=== PATIENT | female | born 1945 | race Caucasian/White ===

== ENCOUNTER 2021-07-02 08:27 | Emergency (ER) | payer MEDICARE, OTHER, SELFPAY ==
[2021-07-02] VITALS (14 sets, daily range): BP systolic 128–199; BP diastolic 78–104; PULSE 80–112; RESP 17–36; TEMP 36.7; O2SAT 93–99; BMI 28.9
--- NOTE | 2021-07-02 08:51 | DI.RAD.S_ITS ---
PROCEDURE: XR CHEST 1V INDICATIONS: chest pain TECHNIQUE: One view of the chest was acquired. COMPARISON: None. FINDINGS: Surgical changes and devices: None. Lungs and pleura: On this semiupright portable chest examination, no large pneumothorax or large pleural effusions are seen. No focal infiltrates are seen. Mediastinum: The cardiac contours are within normal limits. The aorta demonstrates calcification and tortuosity. Bones and chest wall: Age-appropriate bony degenerative changes are seen. No suspicious bony lesions. Overlying soft tissues appear unremarkable. IMPRESSION: Unremarkable portable chest study age. Dictated by: Diego Carty M.D. on 07/02/2021 at 8:13 Approved by: Diego Carty M.D. on 07/02/2021 at 8:13
--- NOTE | 2021-07-02 09:00 | ED.CHESTPAIN ---
HPI - Chest Pain General Chief Complaint: Chest Pain Stated Complaint: AFIB Time Seen by Provider: 07/02/21 09:00 Source: patient Limitations: no limitations Limitations: no limitations History of Present Illness HPI narrative: This is a 75-year-old female comes emergency department stating she is in atrial fibrillation. She has had a history of AFib she is anticoagulated propylene on Pradaxa which he takes twice daily. She denies missing any doses. She states last night she noticed her heart irregular, it felt fast at that time but now just feels irregular chills occasional fluttering. She denies chest pain or pressure or shortness of breath. She has been mildly lightheaded but has not had any syncope. No nausea, no vomiting. No swelling her extremities. She is scheduled for an ablation in September of 2021. Patient states that she is on Pradaxa, lisinopril, sotalol and levothyroxine. She has had all of her medications today except for her levothyroxine. She has had 1 cardioversion where she received medication and an electrical shock at would be ER. She had 1 additional episode really give her medication which cardioverted her. And she has had 2 episodes where she was able to switch back to a normal rhythm at home. She has not had any prior cardiac interventions no stents or ablation. She has had tonsillectomy and hysterectomy. No tobacco, occasional alcohol none recently, no illicit. Her primary care doctors Dr. Cortez and her home health physical therapist is Dr. Santana. Related Data Home Medications Medication Instructions Recorded Confirmed levothyroxine 50 mcg capsule 50 mcg PO DAILY 05/30/19 05/30/19 lisinopril 10 mg tablet 10 mg PO DAILY 05/30/19 05/30/19 metoprolol tartrate 25 mg tablet 25 mg PO BID 05/30/19 05/30/19 rivaroxaban 20 mg tablet (Xarelto) 20 mg PO DAILY 05/30/19 05/30/19 simvastatin 20 mg tablet (Zocor) 20 mg PO QPM 05/30/19 05/30/19 Allergies Allergy/AdvReac Type Severity Reaction Status Date / Time amoxicillin [AMOXICILLIN] Allergy Intermediate Hives Verified 07/02/21 08:57 codeine AdvReac Hallucinati Verified 07/02/21 08:58 ng rivaroxaban [From Xarelto] AdvReac Verified 07/02/21 08:58 Review of Systems Review of Systems ROS Unobtainable: All systems reviewed & are unremarkable except as noted in HPI and below Patient History Surgical History History of tonsillectomy Status post dilation and curettage Status post hysterectomy Family History Grandmother Heart disease Father Hypertension Family/Other Restless leg syndrome Hypertension Social History Smoking Status: Never smoker Smoking Status: Never smoker Exam Narrative Exam Narrative: GENERAL: Alert and oriented x three, female mild distress. HEENT: Head normocephalic, atraumatic, EOMI, pupils reactive, face symmetric, moist mucous membranes NECK: Supple, full range of motion CARDIOVASCULAR: Irregularly irregular rate and rhythm without murmurs, rubs or gallops. No JVD. No swelling bilateral lower extremities. RESPIRATORY: Breath sounds equal bilaterally, no wheezes rales or rhonchi. No tachypnea accessory muscle use. ABDOMEN: Soft, nontender. Normoactive bowel sounds all 4 quadrants. No guarding or rebound, rigidity, no mass : No CVA tenderness EXTREMITIES: Normal range of motion, no clubbing or edema. Neurovascularly intact NEUROLOGICAL: Cranial nerves II through XII grossly intact. Moving all extremities SKIN: Warm, dry, no petechiae, no rashes or lesions. Initial Vital Signs Initial Vital Signs: Vital Signs Temperature 98.0 F 07/02/21 08:35 Pulse Rate 112 H 07/02/21 08:35 Respiratory Rate 20 07/02/21 08:35 Blood Pressure 199/95 H 07/02/21 08:35 Pulse Oximetry 98 07/02/21 08:35 Course Orders Ordered: Discontinued Medications Sodium Chloride (Normal Saline 0.9%) 1,000 mls @ 1,000 mls/hr IV BOLUS ONE Stop: 07/02/21 10:13 Last Infusion: 07/02/21 11:24 Dose: 0 mls/hr Documented by: [email or web address] Admin: 07/02/21 09:19 Dose: 1,000 mls/hr Documented by: [email or web address] Reevaluation(s) Reevaluation #1: Discussed with patient recommendation from Cardiology she feels comfortable with this plan. She will contact her cardiology team she has a follow already scheduled in the next couple weeks but will call see about sooner follow-up for potential cardioversion outpatient. She is aware of signs symptoms to watch for and reasons to return emergently. Consultations Consultation #1: Dr Vaughn, cardiology with [facility]. Discussed patient has been rate controlled here in the department. She describes what was a eventful cardioversion and her last emergency room visit and discuss that at this time likely would not be appropriate she is right control, she is appropriately anticoagulated they agree with this due states she did have an outpatient cardioversion with them if necessary but at this time would have her return home continue her home medications and follow-up. Vital Signs Vital signs: Vital Signs - 8 hr 07/02/21 08:35 07/02/21 08:45 07/02/21 09:00 Temperature 98.0 F Pulse Rate 112 H 86 82 Respiratory Rate 20 35 H 32 H Blood Pressure 199/95 H Pulse Oximetry 98 99 97 07/02/21 09:01 Temperature Pulse Rate 88 Respiratory Rate 36 H Blood Pressure 141/85 H Pulse Oximetry 96 MDM - Chest Pain Lab Data Result diagrams: 07/02/21 08:45 07/02/21 08:45 Labs: Lab Results 07/02/21 07/02/21 07/02/21 Range/Units 08:45 08:45 09:20 WBC 5.9 (4.5-11.0) X10^3/uL RBC 5.29 H (4.0-5.2) X10^6/uL Hgb 16.2 H (12.0-16.0) g/dL Hct 47.5 H (36-46) % MCV 89.8 (80-100) fL MCH 30.7 (26-34) PG MCHC 34.1 (30-36) % RDW 13.0 (11.6-14.8) % Plt Count 233 (150-400) X10^3/uL Neut % (Auto) 43.3 L (50-75) % Lymph % (Auto) 46.1 H (25-40) % [place] % (Auto) 8.5 (3-14) % Eos % (Auto) 1.6 L (2-4) % Baso % (Auto) 0.5 (0-2) % Neut # (Auto) 2500 (1389-0379) /uL Lymph # (Auto) 2700 (5225-6892) /uL [place] # (Auto) 500 (0-900) /uL Eos # (Auto) 100 (0-450) /uL Baso # (Auto) 0 (0-100) /uL Sodium 138 (137-145) mmol/L Potassium 4.3 (3.4-5.1) mmol/L Chloride 101 (98-107) mmol/L Carbon Dioxide 28 (22-32) mmol/L BUN 13 (7-17) mg/dL Creatinine 0.64 (0.52-1.04) mg/dL Estimated GFR > 60.0 (>60) mL/min BUN/Creatinine Ratio 20.3 (6-22) Glucose 136 H (80-110) mg/dL Calcium 9.4 (8.4-10.2) mg/dL Magnesium 2.2 (1.6-2.3) mg/dL Total Bilirubin 1.1 (0.2-1.3) mg/dL AST 37 H (14-36) IU/L ALT 28 (<35) IU/L Alkaline Phosphatase 75 (38-126) U/L Total Creatine Kinase 84 (30-135) U/L CK-MB (CK-2) TNP CK-MB (CK-2) Rel Index TNP Troponin I < 0.012 (0.01-0.034) ng/mL Total Protein 8.1 (6.3-8.2) g/dL Albumin 4.7 (3.5-5.0) g/dL Globulin 3.4 (1.7-4.1) g/dL Albumin/Globulin Ratio 1.4 (1.0-2.8) Lipase 69 (23-300) U/L SARS-CoV-2 (PCR) Negative (Negative) Imaging Data Chest x-ray: Radiologist's Impression: Launch?[address] [address] XRay Report Signed Patient: Radha Donovan MR#: [id number] : 1945 Acct:[id number] Age/Sex: 75 / F Date of Service: 07/02/21 Loc: ED Accession Number: [id number] ?? Procedure: XR chest 1V Ordering Provider: Natasha Rodrigez D.O. PROCEDURE:? XR CHEST 1V ? INDICATIONS:? chest pain ? TECHNIQUE:? One view of the chest was acquired.? ? COMPARISON:? None. ? FINDINGS:? ? Surgical changes and devices:? None.? ? Lungs and pleura:? On this semiupright portable chest examination, no large pneumothorax or large pleural effusions are seen.? No focal infiltrates are seen.? ? Mediastinum:? The cardiac contours are within normal limits. The aorta demonstrates calcification and tortuosity. ? Bones and chest wall:? Age-appropriate bony degenerative changes are seen.? No suspicious bony lesions.? Overlying soft tissues appear unremarkable.? IMPRESSION:? Unremarkable portable chest study age.? ? ? Dictated by: Diego Carty M.D. on 07/02/2021 at 8:13 ? ? Approved by: Diego Carty M.D. on 07/02/2021 at 8:13?? ECG Data Attestation: I personally reviewed and interpreted this ECG as follows: Prior ECG tracings: not available for review Interpretation: AFib with rate of 76 QRS 82 and QTC of 425. No acute ST elevation depression noted. No priors available for comparison. MDM Narrative Medical decision making narrative: This is a 75-year-old female with known history of AFib who is appropriately anticoagulated. She is rate controlled with no emergent symptoms. Her labs are appropriate, EKG and chest x-ray. Discussed with patient she has had a cardioversion emergency department before and describes her heart stops, she states she was told to let other people know when she had this before she does not know what medication she received. After discussion of risks versus benefits discussed with her cardiology team as well and feels she is quite stable at this time would defer have her follow-up outpatient with Cardiology. They can schedule cardioversion and have her return if she is having acutely worsening symptoms. Discharge Plan Departure Patient Disposition: Home Clinical Impression: Atrial fibrillation Instructions: Atrial Fibrillation Activity Restrictions/Additional Instructions: Please follow-up with her cardiology team. I spoke with them today they may be able to do an outpatient cardioversion for you if your symptoms are persistent but agree with waiting on cardioversion today. Please continue home medications as prescribed. Please return for recurrent or worsening symptoms, fast heartbeat that is persistent or very very slow, passing out, new chest pain or shortness of breath, persistent vomiting, swelling of extremities or other new or concerning symptoms. Prescriptions: No Action Xarelto 20 mg tablet 20 mg PO DAILY 0RF metoprolol tartrate 25 mg tablet 25 mg PO BID 0RF simvastatin [Zocor] 20 mg tablet 20 mg PO QPM 0RF levothyroxine 50 mcg capsule 50 mcg PO DAILY 0RF lisinopril 10 mg tablet 10 mg PO DAILY 0RF Referrals: Maria Luisa Cortez MD [Primary Care Provider] - Taqueria Santana MD [Non-Staff] -
[2021-07-02 09:13] LABS: Add Manual Diff / Slide Review NO; Basophils Absolute Auto 0 /uL (0-100); Basophils Percent Auto 0.5 % (0-2); Eosinophils Absolute Auto 100 /uL (0-450); Eosinophils Percent Auto 1.6 % (2-4); Hematocrit 47.5 % (36-46); Hemoglobin 16.2 g/dL (12.0-16.0); Lymphocytes Absolute Auto 2700 /uL (1100-4500); Lymphocytes Percent Auto 46.1 % (25-40); Mean Corpuscular HGB Conc 34.1 % (30-36); Mean Corpuscular Hemoglobin 30.7 PG (26-34); Mean Corpuscular Volume 89.8 fL (80-100); Monocytes Absolute Auto 500 /uL (0-900); Monocytes Percent Auto 8.5 % (3-14); Neutrophils Absolute Auto 2500 /uL (1500-7000); Neutrophils Percent Auto 43.3 % (50-75); Platelet Count 233 X10^3/uL (150-400); Red Blood Cell Count 5.29 X10^6/uL (4.0-5.2); White Blood Cell Count 5.9 X10^3/uL (4.5-11.0)
[2021-07-02] MEDS: SODIUM CHLORIDE 0.9% 1,000 ML 1000 ML IV (09:19)
[2021-07-02 09:20] LABS: Alanine Aminotransferase 28 IU/L (<35); Albumin 4.7 g/dL (3.5-5.0); Albumin Globulin Ratio 1.4 (1.0-2.8); Alkaline Phosphatase 75 U/L (38-126); Aspartate Aminotransferase 37 IU/L (14-36); BUN Creatinine Ratio 20.3 (6-22); Bilirubin Total 1.1 mg/dL (0.2-1.3); Blood Urea Nitrogen 13 mg/dL (7-17); Calcium 9.4 mg/dL (8.4-10.2); Carbon Dioxide 28 mmol/L (22-32); Chloride 101 mmol/L (98-107); Creatine Kinase 84 U/L (30-135); Estimated Glomerular Filt Rate > 60.0 mL/min (>60); Globulin 3.4 g/dL (1.7-4.1); Glucose 136 mg/dL (80-110); HEMOLYSIS < 15 (0-50); Lipase 69 U/L (23-300); Magnesium 2.2 mg/dL (1.6-2.3); Potassium 4.3 mmol/L (3.4-5.1); Sodium 138 mmol/L (137-145); Total Protein 8.1 g/dL (6.3-8.2)
[2021-07-02 09:30] LABS: Troponin I < 0.012 ng/mL (0.01-0.034)
[2021-07-02 10:11] LABS: COVID19 -Nasal RAPID Negative (Negative)
== END 2021-07-02 11:32 | disposition home or self-care (01) ==
PROVIDERS: Emergency Provider Emergency Medicine; PCP Internal Medicine; Referring Provider Internal Medicine Cardiovascular Disease
DX: I48.91 Unspecified atrial fibrillation (principal); Z79.01 Long term (current) use of anticoagulants; Z20.822 Contact with and (suspected) exposure to COVID-19
CPT/HCPCS: 36415; 71045; 80053; 82550; 83690; 83735; 84484; 85025; 87635; 93005; 93010; 99284; C9803

== ENCOUNTER 2023-09-08 07:54 | Emergency (ER) | payer MEDICARE, OTHER, SELFPAY ==
--- NOTE | 2023-09-08 08:04 | ED.GENADULT ---
HPI - General Adult General Chief complaint: Arrhythmia/Palpitations Stated complaint: Was in Tachycardia, High Pulse per EMS Time Seen by Provider: 09/08/23 08:01 Source: patient, RN notes reviewed and old records reviewed Mode of arrival: Ambulatory Limitations: no limitations History of Present Illness HPI narrative: 77-year-old female with history of atrial fibrillation, cardiac ablation 2 years prior, Watchman device 1 year ago, hypertension, hypothyroidism with complaint of palpitation and racing heart this morning. She states she woke up early overnight felt her pulse racing. Fell back asleep. Around 530 or 6:00 a.m. felt a racing pulse she felt lightheaded but no syncope. She denies any chest pain or pressure no shortness of breath. No diaphoresis. She denies any nausea or vomiting. No issues with bowel movements, noticed little bit increased frequency with urination but no dysuria urgency. Patient states no new swelling of her extremities she is chronic left lower extremity swelling from prior injury. Patient states she did have a history of atrial fibrillation has not had any episodes in the past 2 years did have 1 possible episode a couple nights ago where she woke up with a heart running fast. Patient checked her watch and had her pulse at 1:35 a.m., she had an ECC showed atrial fibrillation. Contacted 911 EMS came they did an EKG which showed tachycardia, she did not get a copy of the EKG and she ultimately came by private auto. Patient states she takes thyroid pill, amlodipine, lisinopril, metoprolol and aspirin 81 mg daily. She had a cardiac ablation 2 years ago in September. She had a Watchman device 1 year ago she has had check and was told it was doing well. She has allergies to codeine, amoxicillin and nuts. Denies tobacco, rare alcohol, no recreational drugs. Dr. Cortez is her primary care physician. She follows with Dr. 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 Related Data Home Medications Medication Instructions Recorded Confirmed levothyroxine 50 mcg capsule 50 mcg PO DAILY 05/30/19 05/30/19 lisinopril 10 mg tablet 10 mg PO DAILY 05/30/19 05/30/19 metoprolol tartrate 25 mg tablet 25 mg PO BID 05/30/19 05/30/19 amlodipine 5 mg tablet 5 mg PO DAILY 08/07/23 08/07/23 aspirin 81 mg tablet,delayed 81 mg PO DAILY 08/07/23 08/07/23 release cholestyramine (with sugar) 4 gram ea PO DAILY 08/07/23 08/07/23 oral powder Previous Rx's Medication Instructions Recorded clobetasol 0.05 % topical ointment 1 applic topical BEDTIME #45 grams 08/07/23 Allergies Allergy/AdvReac Type Severity Reaction Status Date / Time amoxicillin [AMOXICILLIN] Allergy Intermediate Hives Verified 08/07/23 08:29 tree nut Allergy Swelling Verified 09/08/23 08:19 of Lip/Tongue/Throat codeine AdvReac Hallucinati Verified 08/07/23 08:29 ng rivaroxaban [From Xarelto] AdvReac Verified 08/07/23 08:29 Review of Systems Review of Systems ROS Unobtainable: All systems reviewed & are unremarkable except as noted in HPI and below Patient History Surgical History History of tonsillectomy Status post dilation and curettage Status post hysterectomy Family History Grandmother Heart disease Father Hypertension Family/Other Restless leg syndrome Hypertension Social History Smoking Status: Never smoker Smoking Status: Never smoker alcohol intake frequency: 0-2 drinks per day Substance Use Type: does not use Exam Narrative Exam Narrative: GENERAL: Alert and oriented x three, no acute distress. HEENT: Head normocephalic, atraumatic, EOMI, pupils reactive, face symmetric, moist mucous membranes NECK: Supple, full range of motion CARDIOVASCULAR: Regular rate and rhythm without murmurs, rubs or gallops. No JVD. RESPIRATORY: Breath sounds equal bilaterally, no wheezes rales or rhonchi. ABDOMEN: Soft, nontender. Normoactive bowel sounds all 4 quadrants. No guarding or rebound, rigidity, no mass : No CVA tenderness EXTREMITIES: Normal range of motion, no clubbing or edema. Neurovascularly intact NEUROLOGICAL: Cranial nerves II through XII grossly intact. Moving all extremities SKIN: Warm, dry, no petechiae, no rashes or lesions. Initial Vital Signs Initial Vital Signs: Vital Signs Temperature 98.4 F 09/08/23 08:12 Pulse Rate 76 09/08/23 08:12 Respiratory Rate 15 09/08/23 08:12 Blood Pressure 140/96 H 09/08/23 08:12 Pulse Oximetry 99 09/08/23 08:12 Oxygen Delivery Method Room Air 09/08/23 08:12 Course Orders Ordered: Discontinued Medications Aspirin (Aspirin 81 Mg Chew Tab) 324 mg PO NOW ONE Stop: 09/08/23 08:13 Last Admin: 09/08/23 09:17 Dose: Not Given Documented By: RB Vital Signs Vital signs: Vital Signs - 8 hr 09/08/23 08:12 Temperature 98.4 F Pulse Rate 76 Respiratory Rate 15 Blood Pressure 140/96 H Pulse Oximetry 99 Oxygen Delivery Method Room Air Medical Decision Making Lab Data 09/08/23 08:05 09/08/23 08:05 Labs: Lab Results 09/08/23 Range/Units 08:05 WBC 6.9 (4.5-11.0) X10^3/uL RBC 4.96 (4.0-5.2) X10^6/uL Hgb 14.9 (12.0-16.0) g/dL Hct 43.6 (36-46) % MCV 88.0 (80-100) fL MCH 30.0 (26-34) PG MCHC 34.1 (30-36) % RDW 13.3 (11.6-14.8) % Plt Count 221 (150-400) X10^3/uL Neut % (Auto) 46.8 L (50-75) % Lymph % (Auto) 43.5 H (25-40) % [place] % (Auto) 7.7 (3-14) % Eos % (Auto) 1.5 L (2-4) % Baso % (Auto) 0.5 (0-2) % Neut # (Auto) 3200 (4988-3805) /uL Lymph # (Auto) 3000 (3438-5266) /uL [place] # (Auto) 500 (0-900) /uL Eos # (Auto) 100 (0-450) /uL Baso # (Auto) 0 (0-100) /uL PT 11.1 (9.4-12.5) SECONDS INR 1.0 (0.9-1.3) APTT 30 (25.1-36.5) SECONDS Sodium 137 (137-145) mmol/L Potassium 4.4 (3.4-5.1) mmol/L Chloride 105 (98-107) mmol/L Carbon Dioxide 27 (22-32) mmol/L BUN 15 (7-17) mg/dL Creatinine 0.63 (0.52-1.04) mg/dL Estimated GFR > 60 (>60) mL/min BUN/Creatinine Ratio 23.8 H (6-22) Glucose 121 H (80-110) mg/dL Calcium 9.1 (8.4-10.2) mg/dL Magnesium 2.2 (1.6-2.3) mg/dL Total Bilirubin 0.8 (0.2-1.3) mg/dL AST 27 (14-36) IU/L ALT 19 (<35) IU/L Alkaline Phosphatase 80 (38-126) U/L Total Creatine Kinase 96 (30-135) U/L Troponin I < 0.012 (0.01-0.034) ng/mL Total Protein 7.3 (6.3-8.2) g/dL Albumin 4.4 (3.5-5.0) g/dL Globulin 2.9 (1.7-4.1) g/dL Albumin/Globulin Ratio 1.5 (1.0-2.8) Lipase 60 (23-300) U/L Imaging Data Chest x-ray: Radiologist's Impression: Close Chest X-Ray (Signed) NoheliaBrandon - 09/08/23 Chest X-Ray (Signed) Diego Carty - 07/02/21 Launch?Image [address] [address] XRay Report Signed Patient: Radha Donovan MR#: [id number] : 1945 Acct:[id number] Age/Sex: 77 / F Date of Service: 09/08/23 Loc: ED Accession Number: [id number] Procedure: XR chest 1V Ordering Provider: Natasha Rodrigez D.O. PROCEDURE: XR CHEST 1V INDICATIONS: chest pain TECHNIQUE: One view of the chest was acquired. COMPARISON: [facility], , XR CHEST 1V, 07/02/2021, 8:51. FINDINGS: Surgical changes and devices: None. Lungs and pleura: Lungs are clear. No pleural effusions or pneumothorax. Mediastinum: Mediastinal contours appear normal. Heart size is normal. Bones and chest wall: No suspicious bony lesions. Overlying soft tissues appear unremarkable. IMPRESSION: No acute cardiopulmonary abnormality is seen. Approved by: Brandon Pozo M.D. on 09/08/2023 at 8:56 ECG Data Attestation: I personally reviewed and interpreted this ECG as follows: Prior ECG tracings: available for review Interpretation: Sinus rhythm with a first-degree AV block, rate of 77 NE 210 QRS 88 QTC of 420. No acute ST elevation or depression appreciated. Patient has prior from 07/02/2021 which appears similar with no acute ST changes. EKG does show AFib with a rate of 76 in June. MDM Narrative Medical decision making narrative: 77-year-old female with a history of atrial fibrillation status post cardiac ablation and Watchman device in the past 2 years. Patient had episode racing heart overnight EMS and did not EKG reported to have tachycardia but unclear exactly what that was patient was not given a copy she arrived by private auto. Patient is not currently in any form of tachycardia do suspect she probably had an arrhythmia of some sort. Her white count is 6.9 hemoglobin is 14.9 platelets are 221. INR is 1 sodium 137 potassium is 4.4, magnesium is 2.2, chloride 105 CO2 of 27 BUN of 15 creatinine 0.63, glucose is 121 LFTs are negative, troponins less than 0.012 Chest x-ray shows no acute change. EKG shows sinus rhythm with first-degree AV block. Telemetry has not capture any arrhythmias here. Plan to have patient follow up with the cardiology team, Holter monitor or ZIO patch to figure out what to sort of cardiac arrhythmias she is having. Discharge Plan Departure Patient Disposition: Home Clinical Impression: Palpitations Instructions: DI for Arrhythmias Activity Restrictions/Additional Instructions: Follow up with primary care and/or your generator repairer to get set up for Holter patch or ZIO monitor to evaluate for arrhythmias. I suspect you did have an arrhythmia earlier today but we were unable to captured here in the department. Your labs, imaging and EKG today show no major changes. You do have a first-degree AV block on your EKG but are in sinus rhythm. Please return for recurrent symptoms, lightheadedness or passing out, new chest pain or shortness of breath, persistently fast heart rate, vomiting, new swelling of extremities or other new or concerning changes. Prescriptions: No Action aspirin 81 mg tablet,delayed release (DR/EC) 81 mg PO DAILY amlodipine 5 mg tablet 5 mg PO DAILY cholestyramine (with sugar) 4 gram powder PO DAILY clobetasol 0.05 % ointment 1 applic topical BEDTIME Qty: 45 3RF Rx Instructions: apply to affected area nightly for 2 weeks, then every other night for 2 weeks, then space out to twice per week metoprolol tartrate 25 mg tablet 25 mg PO BID levothyroxine 50 mcg capsule 50 mcg PO DAILY lisinopril 10 mg tablet 10 mg PO DAILY Referrals: Maria Luisa Cortez MD [Primary Care Provider] - Stand Alone Forms: Patient Portal/API
[2023-09-08 08:12] VITALS: BP 140/96; PULSE 76; RESP 15; TEMP 36.9; O2SAT 99; BMI 27.4
--- NOTE | 2023-09-08 08:12 | DI.RAD.S_ITS ---
PROCEDURE: XR CHEST 1V INDICATIONS: chest pain TECHNIQUE: One view of the chest was acquired. COMPARISON: [facility], CR, XR CHEST 1V, 07/02/2021, 8:51. FINDINGS: Surgical changes and devices: None. Lungs and pleura: Lungs are clear. No pleural effusions or pneumothorax. Mediastinum: Mediastinal contours appear normal. Heart size is normal. Bones and chest wall: No suspicious bony lesions. Overlying soft tissues appear unremarkable. IMPRESSION: No acute cardiopulmonary abnormality is seen. Approved by: Brandon Pozo M.D. on 09/08/2023 at 8:56
[2023-09-08 08:18] LABS: Add Manual Diff / Slide Review NO; Basophils Absolute Auto 0 /uL (0-100); Basophils Percent Auto 0.5 % (0-2); Eosinophils Absolute Auto 100 /uL (0-450); Eosinophils Percent Auto 1.5 % (2-4); Hematocrit 43.6 % (36-46); Hemoglobin 14.9 g/dL (12.0-16.0); Lymphocytes Absolute Auto 3000 /uL (1100-4500); Lymphocytes Percent Auto 43.5 % (25-40); Mean Corpuscular HGB Conc 34.1 % (30-36); Monocytes Absolute Auto 500 /uL (0-900); Monocytes Percent Auto 7.7 % (3-14); Neutrophils Absolute Auto 3200 /uL (1500-7000); Neutrophils Percent Auto 46.8 % (50-75); Platelet Count 221 X10^3/uL (150-400); Red Blood Cell Count 4.96 X10^6/uL (4.0-5.2); Red Cell Distribution Width 13.3 % (11.6-14.8); White Blood Cell Count 6.9 X10^3/uL (4.5-11.0)
[2023-09-08 08:23] LABS: Prothrombin Time 11.1 SECONDS (9.4-12.5)
[2023-09-08 08:25] LABS: PTT Partial Thromboplastin Tim 30 SECONDS (25.1-36.5)
[2023-09-08 08:27] LABS: Alanine Aminotransferase 19 IU/L (<35); Albumin 4.4 g/dL (3.5-5.0); Albumin Globulin Ratio 1.5 (1.0-2.8); Alkaline Phosphatase 80 U/L (38-126); Aspartate Aminotransferase 27 IU/L (14-36); BUN Creatinine Ratio 23.8 (6-22); Bilirubin Total 0.8 mg/dL (0.2-1.3); Blood Urea Nitrogen 15 mg/dL (7-17); Calcium 9.1 mg/dL (8.4-10.2); Carbon Dioxide 27 mmol/L (22-32); Chloride 105 mmol/L (98-107); Creatine Kinase 96 U/L (30-135); Estimated Glomerular Filt Rate > 60 mL/min (>60); Globulin 2.9 g/dL (1.7-4.1); Glucose 121 mg/dL (80-110); HEMOLYSIS < 15 (0-50); Lipase 60 U/L (23-300); Magnesium 2.2 mg/dL (1.6-2.3); Potassium 4.4 mmol/L (3.4-5.1); Sodium 137 mmol/L (137-145); Total Protein 7.3 g/dL (6.3-8.2)
[2023-09-08 08:39] LABS: Troponin I < 0.012 ng/mL (0.01-0.034)
[2023-09-08 09:19] VITALS: BP 139/80; PULSE 72; O2SAT 100
== END 2023-09-08 09:19 | disposition home or self-care (01) ==
PROVIDERS: Emergency Provider Emergency Medicine; PCP Internal Medicine
DX: R00.2 Palpitations (principal); R07.9 Chest pain, unspecified; I44.0 Atrioventricular block, first degree; Z79.899 Other long term (current) drug therapy
CPT/HCPCS: 36415; 71045; 80053; 82550; 83690; 83735; 84484; 85025; 85610; 85730; 93005; 93010; 99284